=== PATIENT | female | born 1975 | race Caucasian/White ===

== ENCOUNTER → 2019-10-06 | Day surgery (SDC) | payer OTHER ==
--- NOTE | 2019-10-07 15:34 | PATH ---
Cytology Non-Gynecological Report Patient Name: MARIO NULL [facility]. Rec. #: [id number] /Age/Gender: 1975 (Age: 44) / F Account: [id number] Location: [facility] Taken: 10/06/2019 Received: 10/06/2019 Reported: 10/07/2019 Physicians: Emi Vallejo MD Specimen(s) Received BREAST, RIGHT, RETROAREOLAR, CYST, ULTRASOUND GUIDED FINE NEEDLE ASPIRATION Clinical History Right breast, retroareolar, 1.7 cm cyst aspiration with complete disappearance Final Diagnosis BREAST, RIGHT, RETROAREOLAR, CYST, ULTRASOUND GUIDED FINE NEEDLE ASPIRATION: SATISFACTORY FOR EVALUATION. NO MALIGNANT CELLS IDENTIFIED. CYSTIC BREAST LESION WITH PROTEINACEOUS MATERIAL/DEBRIS AND RARE DEGENERATED CELLS. NO DUCTAL CELLS IDENTIFIED. Electronically Signed Kathleen Bedolla M.D. Gross Description Approximately 30 cc of cloudy fluid received fixed in 50% alcohol. One cytofunnel prepared and Pap stained. One cellblock prepared.
== END | disposition home or self-care (01) ==
LOC: JRADUS-SUR 08:18
PROVIDERS: ATTEND Family Medicine
PROC: BH40ZZZ Ultrasonography of Right Breast (ICD-10-PCS; principal; 2019-10-06)
PROC: 0H9T3ZX Drainage of Right Breast, Percutaneous Approach, Diagnostic (ICD-10-PCS; 2019-10-06)
DX: N60.01 Solitary cyst of right breast (principal)
CPT/HCPCS: 19000; 76942-TC; 77065-TC; 88173; 88305-TC